=== PATIENT | female | born 1965 | race Caucasian/White ===

== ENCOUNTER 2018-03-09 07:27 | Day surgery (SDC) | payer BC, OTHER ==
[~2018-03-09 07:27] MED LIST: Lactated Ringers 1,000 ML IV SCH
[2018-03-09] MEDS ORDERED: fentaNYL 100 MCG/2 ML SDV ONE (08:20)
[2018-03-09] MEDS ORDERED: Propofol 200 MG/20 ML SDV ONE (08:21)
--- NOTE | 2018-03-09 11:01 | OR ---
PREOPERATIVE DIAGNOSIS: Family history of polyps, personal history of polyps. POSTOPERATIVE DIAGNOSIS: Polyp at 100 cm removed. PROCEDURE PROPOSED: Total flexible colonoscopy. PROCEDURE DONE: Total flexible colonoscopy with polypectomy x1. INDICATION: This is a 52-year-old female comes in for colonic surveillance. She has a personal history of polyps, also family history of polyps. She has had several colonoscopies previously. Her last one was about 5 years ago. TECHNIQUE: The patient brought to the endoscopy suite, placed in left lateral decubitus position. 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 The flexible video colonoscope was then passed transanally and under visualization advanced to the cecum. Examination revealed a normal ascending colon. In the transverse colon at about 100 cm, there was 1 small adenomatous polyp removed with cold biopsy forceps and submitted for pathologic examination. The remainder of the transverse and descending colon was unremarkable. Sigmoid colon revealed couple of diverticular orifices, but was very minimal. The rectum was normal. There was no evidence of any other polyps or colitis or other abnormalities, and the scope was then withdrawn. The patient tolerated procedure well. FINAL IMPRESSION: 1. Transverse colon polyp x1. 2. Minimal diverticulosis sigmoid region. PLAN: The patient be sent a letter with pathology report and I felt she should continue with colonic surveillance every 5 years hereafter. SCM: 03/09/2018 09:30:00 MODL: 03/09/2018 10:13:21 /[id number]
--- NOTE | 2018-03-18 07:50 | LETTER ---
03/17/2018 Ms. Keegan Lemus RE: KEEGAN LEMUS : 1965 Dear Keegan: The polyp removed from your colon was a benign tubular adenoma. This is considered a precancerous type polyp, but there were no worrisome changes within your polyp, and I feel you should have a 5-year followup exam to make sure you have not formed any new polyps. Respectfully,
== END 2018-03-09 10:54 | disposition home or self-care (01) ==
LOC: VM.SDS 07:27
PROVIDERS: ATTEND Surgery
DX: Z12.11 Encounter for screening for malignant neoplasm of colon (principal); D12.3 Benign neoplasm of transverse colon; K57.30 Diverticulosis of large intestine without perforation or abscess without bleeding; E66.9 Obesity, unspecified; Z68.34 Body mass index [BMI] 34.0-34.9, adult; E78.00 Pure hypercholesterolemia, unspecified; Z86.010 Personal history of colon polyps; Z87.891 Personal history of nicotine dependence; Z80.0 Family history of malignant neoplasm of digestive organs
CPT/HCPCS: J2704; J3010; J7120

== ENCOUNTER 2023-12-23 06:57 | Day surgery (SDC) | payer OTHER ==
[2023-12-23] MEDS: Lactated Ringers 1,000 ML IV SCH (07:15)
[2023-12-23] MEDS ORDERED: fentaNYL 100 MCG/2 ML SDV ONE (08:21)
[2023-12-23] MEDS ORDERED: Propofol 200 MG/20 ML SDV ONE ×2 (08:21→08:36)
== END 2023-12-23 09:55 | disposition home or self-care (01) ==
LOC: VM.SDS 06:57
PROVIDERS: ATTEND Family Medicine
DX: Z12.11 Encounter for screening for malignant neoplasm of colon (principal); D12.6 Benign neoplasm of colon, unspecified; K62.1 Rectal polyp; K57.30 Diverticulosis of large intestine without perforation or abscess without bleeding; K64.4 Residual hemorrhoidal skin tags; H93.13 Tinnitus, bilateral; B35.1 Tinea unguium; E78.00 Pure hypercholesterolemia, unspecified; Z87.891 Personal history of nicotine dependence; Z79.899 Other long term (current) drug therapy
CPT/HCPCS: 00811; 45385; J2704; J3010; J7120